=== PATIENT | male | born 1950 | race Caucasian/White ===

== ENCOUNTER 2018-03-20 10:58 | Observation (INO) ==
[2018-03-20] MEDS ORDERED: Labetalol HCl Inj 100 MG/20 ML Vial IV.CONT ONE (12:00)
[2018-03-20] MEDS ORDERED: Sodium Chlor 0.9% Inj 500 ML IV.SIG ONE (12:00)
[2018-03-20] MEDS ORDERED: Chlorhexidine Gluconate 2% 1 Pack (2 Cloths) TOPICAL SCH (12:45)
[2018-03-20] MEDS ORDERED: Metoprolol Tartrate 25 MG Tablet PO SCH (12:45)
[2018-03-20] MEDS ORDERED: Sodium Chlor 0.9% Inj 500 ML IV.SIG SCH (13:00)
[2018-03-20 13:01] LABS: Baso # (Auto) 0.1 th/mm3 (0.0-0.2); Baso % (Auto) 0.8 % (0.0-2.0); Eos # (Auto) 0.2 th/mm3 (0.0-0.4); Eos % (Auto) 2.7 % (0.0-4.0); Hemoglobin 13.9 gm/dL (13.0-17.0); Lymph % (Auto) 16.3 % (9.0-44.0); Mean Corpuscular HGB Conc 35.6 % (32.0-36.0); Mean Corpuscular Hemoglobin 33.4 pg (27.0-34.0); Mean Corpuscular Volume 93.9 fL (80.0-100.0); Mean Platelet Volume 8.9 fL (7.0-11.0); Mono # (Auto) 0.7 th/mm3 (0.0-0.9); Mono % (Auto) 11.7 % (0.0-8.0); Neut # (Auto) 4.1 th/mm3 (1.8-7.7); Neut % (Auto) 68.5 % (16.0-70.0); Platelet Count 360 th/mm3 (150-450); Red Blood Count 4.16 mil/mm3 (4.50-5.90); Red Cell Distribution Width 13.8 % (11.6-17.2)
[2018-03-20 13:11] LABS: Activated Partial Thrombo Time 26.7 sec (24.3-30.1); Prothrombin Time 10.6 sec (9.8-11.6)
[2018-03-20 13:57] LABS: Carbon Dioxide 24.4 meq/L (21.0-32.0)
--- NOTE | 2018-03-20 14:40 | ECG ---
Date Performed: 03/20/2018 Time Performed: 12:54:35 PTAGE: 67 years EKG: Sinus rhythm RIGHT BUNDLE BRANCH BLOCK ABNORMAL ECG NO PREVIOUS TRACING DOCTOR: Clay Can Interpretating Date/Time 03/20/2018 14:39:41
[2018-03-20] MEDS ORDERED: Heparin - SQ 10,000 UNITS/ML Vial SQ ONE (15:11)
[2018-03-20] MEDS ORDERED: Protamine Sulfate Inj 50 MG/5 ML Vial ONE (15:11)
[2018-03-20] MEDS ORDERED: Heparin 10,000 UNITS/10 ML Vial (for IV use) ONE (15:11)
[2018-03-20] MEDS ORDERED: Bupivacaine/Epinephrine PF Inj 0.5% 30 ML Vial ONE (15:11)
[2018-03-20] MEDS ORDERED: fentaNYL Citrate Inj 100 MCG/2 ML Ampul ONE (17:32)
[2018-03-20] MEDS ORDERED: Iohexol 300 MG/ML 50 ML Vial (for Rad Diag) IVCONTRAST ONE (18:04)
[2018-03-20] MEDS ORDERED: Metoprolol Inj 5 MG/5 ML Vial IV.PUSH PRN (21:06)
[2018-03-21] MEDS ORDERED: Lisinopril 10 MG Tablet PO SCH (09:00)
[2018-03-21] MEDS ORDERED: Metoprolol Tartrate 25 MG Tablet PO SCH (09:00)
--- NOTE | 2018-03-22 10:09 | MP ---
cc: Tae Cee MD, Javier DATE OF OPERATION: 03/20/2018 PREOPERATIVE DIAGNOSIS: Disabling, right lower extremity ischemia. POSTOPERATIVE DIAGNOSIS: Disabling, right lower extremity ischemia. PROCEDURE PERFORMED: Aortofemoral arteriogram. Right popliteal orbital atherectomy/drug-coated balloon angioplasty. SURGEON: Tae Cee MD SHAMPOOER: UMESH Suh ANESTHESIA: Local, MAC. DESCRIPTION OF PROCEDURE: With the patient in the supine position and under IV sedation, the lower abdomen, both groins and thighs were prepped with Betadine and draped in a sterile fashion. Following a protocol timeout, the skin and subcutaneous tissue proposed left femoral access site preemptively infiltrated with 0.5% Marcaine with epinephrine. Utilizing ultrasound guidance, an 18-gauge needle was inserted into the left mid common femoral lumen and under fluoroscopic guidance, a J wire was guided into the iliac artery. The 18-gauge needle was exchanged for a 5-Ugandan hemostatic sheath, which was deployed over the J wire. An Advantage guidewire Omni catheter combination was negotiated into the subrenal aorta. A diluted contrast injected into the Omni catheter with digital fluoroscopic imaging confirmed a widely patent distal aorta, bilateral common internal and external iliac arteries. Both common femoral arteries were widely patent as well. Both the right and left profunda and proximal SFAs were nondiseased. The Advantage guidewire was guided into the right mid common femoral lumen. The short 5-Ugandan sheath was exchanged for a 6-Ugandan 45 cm sheath, which was guided into the right mid common femoral lumen. The patient was systemically heparinized with 5000 units. During the procedure, additional heparin administered to maintain ACT above 250. Selective right lower extremity arteriography revealed a widely patent SFA throughout. However, at the adductor level the SFA tapered and the above-knee popliteal was occluded to the patellar level. Perigeniculate collaterals reconstituted the below-knee popliteal with uninterrupted 2-vessel runoff maintained to the right foot. The popliteal occlusion was easily crossed intraluminally with an Advantage a 0.035 Advantage Quick-Cross catheter combination. The Advantage guidewire was then exchanged for a Viper wire, which was guided into the distal peroneal. Orbital atherectomy of the occluded SFA segment was completed with a 1.5 CSI solid crown spun at 6090 and 140,000 RPM followed by balloon angioplasty of the atherectomized segment with initially 6 x 120 followed by a 7 x 120 balloon angioplasties, the 7 x 120 being a drug-coated balloon. Completion angiogram revealed wide patency of the previously occluded popliteal segment with less than 20% residual stenosis proximally, the remainder widely patent. Also, completion angiogram revealed rapid flow to the foot with no technical defects, specifically no evidence of distal embolization. Heparin was not reversed. The long 6-Ugandan sheath was exchanged for a short 6-Ugandan sheath, which was secured with a skin suture of 4-0 nylon. Sterile dressings were applied. At the conclusion of the procedure robust biphasic Doppler pedal flow was confirmed bilaterally. The patient returned to the postanesthesia unit in stable condition, having tolerated the procedure well. Tae Cee MD JTS/TL , 09:42 AM , 10:08 AM
== END 2018-03-21 09:25 | disposition home or self-care (01) ==
LOC: HCPC 10:58 → HSDC 10:58
PROVIDERS: ADMIT Surgery Vascular Surgery; ATTEND Surgery Vascular Surgery
PROC: [UNRECOGNIZED PROCEDURE] (2018-03-20 15:07)